=== PATIENT | male | born 1940 | race Caucasian/White ===

== ENCOUNTER 2016-04-26 13:20 | Emergency (ER) | payer MEDICARE, MEDICAID ==
[~2016-04-26] VITALS: Ht 182.9 cm; Wt 79.8 kg
[~2016-04-26 13:20] MED LIST: ACTOS45 MG PO; AMARYL2 MG PO; ASPIRIN81 M1 PO; FLOMAX0.4 MG PO; GLUCOPHAGE850 MG PO; LANTUS SOLOS100 U/ML SUBQ; LOTENSIN40 MG PO; ORETIC25 MG PO; ULTRAM50 MG PO; ZOCOR20 MG PO; [UNRECOGNIZED DRUG - OTHER] PO
[2016-04-26 13:25] VITALS: BP 123/59
--- NOTE | 2016-04-26 13:35 | NUR ---
PATIENT PRESENTS TO ED WITH DYSURIA, HEMATURIA AND FREQUENCY X 2 WEEKS, DENIES N/V/D; SKIN IS PINK/WARM/DRY; AAOX4 WITH EVEN AND STEADY GAIT WITH WALKER; LUNGS CLEAR BL; HR EVEN AND REGULAR; PT DENIES ANY FEVER, CP, SOB, OR COUGH AT THIS TIME; PATIENT STATES PAIN OF 10/10 AT THIS TIME; VSS; PATIENT POSITIONED FOR COMFORT; HOB ELEVATED; BEDRAILS UP X2; BED DOWN. ER MD MADE AWARE OF PT STATUS.
--- NOTE | 2016-04-26 13:36 | NUR ---
Patient ambulated to bed 5 with family. RN evaluating patient at bedside.
[2016-04-26 14:27] VITALS: BP 140/62
--- NOTE | 2016-04-26 14:28 | NUR ---
Patient discharged with v/s stable. Written and verbal after care instructions given and explained. Patient alert, oriented and verbalized understanding of instructions. Ambulatory with to home. All questions addressed prior to discharge. ID band removed. Patient advised to follow up with PMD. Rx of CIPRO given. Patient educated on indication of medication including possible reaction and side effects. Opportunity to ask questions provided and answered.
--- NOTE | 2016-04-26 14:28 | NUR ---
ABEL SPOKE TO PATIENT AND SON PRIOR TO DISCHARGE
--- NOTE | 2016-04-26 14:28 | NUR ---
AMBULATED WITH WALKER/SON
== END 2016-04-26 14:28 | disposition home or self-care (01) ==
LOC: MED 13:20
DX: N30.91 Cystitis, unspecified with hematuria (principal); N40.0 Benign prostatic hyperplasia without lower urinary tract symptoms; Z85.46 Personal history of malignant neoplasm of prostate; Z96.89 Presence of other specified functional implants; E11.9 Type 2 diabetes mellitus without complications; I10 Essential (primary) hypertension; Z79.82 Long term (current) use of aspirin; Z79.899 Other long term (current) drug therapy